=== PATIENT | female | born 1940 | race Caucasian/White ===

== ENCOUNTER 2017-09-04 22:48 | Inpatient (IN) ==
--- NOTE | 2017-09-04 23:10 | Emergency Department Note ---
Disposition Clinical Impression: Near syncope, Paroxysmal atrial fibrillation with RVR Vomiting Qualifiers: Vomiting type: unspecified Vomiting Intractability: non-intractable Nausea presence: with nausea Qualified Code(s): R11.2 - Nausea with vomiting, unspecified Diarrhea Qualifiers: Diarrhea type: unspecified type Qualified Code(s): R19.7 - Diarrhea, unspecified Disposition: Admitted As Inpatient Condition: Good Referrals: Renato No DO [Primary Care Provider] - Forms: ED Satisfaction Letter Time of Disposition: 00:18 Nausea/Vomiting/Diarrhea HPI - General Chief complaint: ED Nausea/Vomiting/Diarrhea Stated complaint: dizziness,nausea, high bp Time Seen by Provider: 09/04/17 22:54 Source: patient, family Mode of arrival: ambulatory Limitations: no limitations Nursing Notes Reviewed: Yes Vital Signs Reviewed: Yes - History of Present Illness HPI Narrative: Patient is a 76-year-old female with past medical history of hypertension, hyperlipidemia, diabetes. She presents today due to lightheadedness, near syncope, nausea, vomiting, diarrhea. She states that when she woke up this morning, she felt lightheaded and had to hold onto the sink as she felt like she was going to pass out and fall. She denies any actual loss of consciousness. She states that that today, she has had several of these episodes, has also had 2 episodes of vomiting, also loose stools. Both of these are nonbloody. Denies any other numbness, tingling, weakness, chest pain , shortness of breath, fevers. Denies any dysuria, hematuria. Denies any history of lightheadedness or syncope in the past. She denies vertigo, says that her sensation is more of getting ready to pass out rather than the room spinning. - Related Data Allergies Allergy/AdvReac Type Severity Reaction Status Date / Time No Known Allergies Allergy Verified 09/04/17 22:49 All systems ED: reviewed and negative except as stated. Constitutional: Denies: fever Cardiovascular: Denies: chest pain Respiratory: Denies: dyspnea Gastrointestinal: Reports: nausea, vomiting, diarrhea. Denies: abdominal pain Genitourinary: Denies: urgency, dysuria, frequency, hematuria Musculoskeletal: Denies: back pain, neck pain Neurological: Reports: other (light headedness). Denies: weakness, numbness, paresthesias Past Medical History - Past Medical History Attestation: Yes The following information was validated with the patient. Source: patient Medical history: Reports: diabetes, hyperlipidemia, hypertension Psychiatric history: Reports: depression - Social History Smoking Status: Current every day smoker Smokeless Tobacco Status: No Alcohol use: Reports: none Drug use: Reports: none Physical Exam - General Limitations: no limitations General appearance: alert, in no apparent distress - Head Head exam: atraumatic, normocephalic, normal inspection - Eye Eye exam: Present: normal appearance, PERRL, EOMI - ENT ENT exam: normal exam, normal oropharynx, mucous membranes moist - Neck Neck exam: Present: normal inspection, full ROM, trachea midline - Chest Chest inspection: Present: normal inspection, symmetric chest wall rise - Respiratory Respiratory exam: Present: normal lung sounds bilaterally - Cardiovascular Cardiovascular exam: Present: normal rhythm, bradycardia, normal heart sounds, other (brief 20 second run of a fib RVR) - Abdominal Exam Abdominal exam: Present: soft, Non-Tender. Absent: tenderness, distention, guarding, rebound, rigidity - Extremities Exam Extremities exam: Present: normal inspection, full ROM. Absent: tenderness, pedal edema - Neurological Exam Neurological exam: Present: alert, oriented X3, CN II-XII intact. Absent: motor sensory deficit - Psychiatric Psychiatric exam: Present: normal affect, normal mood - Skin Skin exam: Present: warm, dry, intact, normal color Course Course Narrative: Patient hypertensive on presentation, otherwise, the rest of the vitals were within normal limits on room air. Physical exam fairly benign. She was bradycardic during the exam, regular rhythm. Lungs clear to auscultation, abdomen soft and benign. No lower extremity edema. No focal neurologic deficits. No facial droop or slurring. During the exam, patient did have around 20 second run of A. fib RVR. She was not symptomatic during this run. She has no prior history of A. fib. Due to near-syncope, we will obtain a CT of the head, EKG, chest x-ray, basic blood work, TSH, d-dimer. Patient will need to be admitted for further cardiac monitoring after workup is back due to witnessed arrhythmia. 00:15 TSH within normal limits, troponin negative, d-dimer negative, CT head and chest x-ray negative for any acute processes. EKG shows no acute ST changes , sinus bradycardia. Patient blood pressure remains high at 190 systolic. I discussed admission with the hospitalist. We discussed possibly giving the patient antihypertensive. He would like to see the patient before anything is administered. Patient is currently asymptomatic. Vital Signs Temperature 97.6 F 09/04/17 22:49 Pulse Rate 57 09/04/17 22:49 Respiratory Rate 20 09/04/17 22:49 Blood Pressure 203/84 09/04/17 22:49 O2 Sat by Pulse Oximetry 94 09/04/17 22:49 Temperature 97.6 F 09/04/17 22:49 Pulse Rate 54 09/04/17 23:30 Respiratory Rate 18 09/04/17 23:30 Blood Pressure 196/99 09/04/17 23:30 O2 Sat by Pulse Oximetry 94 09/04/17 22:49 Oxygen Delivery Oxygen Delivery Room Air Nausea/Vomiting/Diarrhea - MDM Narrative Medical decision making narrative: TSH within normal limits, troponin negative, d-dimer negative, CT head and chest x-ray negative for any acute processes. EKG shows no acute ST changes, sinus bradycardia. Patient blood pressure remains high at 190 systolic. I discussed admission with the hospitalist. We discussed possibly giving the patient antihypertensive. He would like to see the patient before anything is administered. Patient is currently asymptomatic. - Medical Records Medical records reviewed: Yes I reviewed the patient's medical records. - Lab Data Lab results reviewed: Yes I reviewed the patient's lab results. Result diagrams: 09/04/17 23:05 09/04/17 23:05 Lab Results 09/04/17 09/04/17 09/04/17 Range/Units 23:05 23:05 23:05 WBC 11.3 H (4.3-11.1) K/mcL RBC 4.92 (3.82-4.97) M/mcL Hgb 14.9 (11.5-15.4) g/dL Hct 45.3 H (35.3-44.9) % MCV 92.1 (83.0-100.0) fL MCH 30.3 (28.0-33.3) pg MCHC 32.9 (31.6-35.5) g/dL RDW 12.6 (11.5-14.5) % Plt Count 293 (140-400) K/mcL MPV 8.4 L (9.4-12.4) fL Immature Gran % 0.3 (0-4) % Seg Neutrophils % 65.6 % Lymphocytes % 25.3 % Monocytes % 6.8 % Eosinophils % 1.3 % Basophils % 0.7 % Neutrophils # 7.4 (1.6-8.9) K/mcL Lymphocytes # 2.9 (0.6-4.6) K/mcL Monocytes # 0.8 (0.0-1.3) K/mcL Eosinophils # 0.2 (0.0-0.6) K/mcL Basophils # 0.1 (0.0-0.2) K/mcL PT 11.2 (9.4-12.1) Seconds INR 1.0 APTT 36.1 H (26.0-36.0) Seconds D-Dimer 439 (0-500) ng/mLFEU Sodium 132 L (136-145) mEq/L Potassium 4.0 (3.5-4.5) mEq/L Chloride 94 L (98-109) mEq/L Carbon Dioxide 29 (19-29) mEq/L BUN 9 (7-20) mg/dL Creatinine 0.67 (0.57-1.11) mg/dL Est GFR ( Amer) > 60 (> 60) Est GFR (Non-Af Amer) > 60 (> 60) BUN/Creatinine Ratio 13 (6-26) Glucose 119 H (70-99) mg/dL Calculated Osmolality 274 L (280-300) Calcium 9.6 (8.6-10.8) mg/dL Troponin I (0-0.03) ng/mL TSH 2.907 (0.350-4.840) mcIU/mL 09/04/17 Range/Units 23:05 WBC (4.3-11.1) K/mcL RBC (3.82-4.97) M/mcL Hgb (11.5-15.4) g/dL Hct (35.3-44.9) % MCV (83.0-100.0) fL MCH (28.0-33.3) pg MCHC (31.6-35.5) g/dL RDW (11.5-14.5) % Plt Count (140-400) K/mcL MPV (9.4-12.4) fL Immature Gran % (0-4) % Seg Neutrophils % % Lymphocytes % % Monocytes % % Eosinophils % % Basophils % % Neutrophils # (1.6-8.9) K/mcL Lymphocytes # (0.6-4.6) K/mcL Monocytes # (0.0-1.3) K/mcL Eosinophils # (0.0-0.6) K/mcL Basophils # (0.0-0.2) K/mcL PT (9.4-12.1) Seconds INR APTT (26.0-36.0) Seconds D-Dimer (0-500) ng/mLFEU Sodium (136-145) mEq/L Potassium (3.5-4.5) mEq/L Chloride (98-109) mEq/L Carbon Dioxide (19-29) mEq/L BUN (7-20) mg/dL Creatinine (0.57-1.11) mg/dL Est GFR ( Amer) (> 60) Est GFR (Non-Af Amer) (> 60) BUN/Creatinine Ratio (6-26) Glucose (70-99) mg/dL Calculated Osmolality (280-300) Calcium (8.6-10.8) mg/dL Troponin I 0.01 (0-0.03) ng/mL TSH (0.350-4.840) mcIU/mL - Radiology Data Radiology results reviewed: Yes I reviewed the patient's radiology results. Chest X-Ray 09/04/17 23:08 IMPRESSION: 1. No acute cardiopulmonary disease. D/ / Leonel Nichols MD / Leonel Nichols MD Interpreting Provider: Leonel Nichols MD Head CT 09/04/17 23:09 IMPRESSION: 1. No acute intracranial abnormality. 2. Moderate chronic white matter microvascular ischemic changes. D/ / Dane Natarajan MD / Dane Natarajan MD Interpreting Provider: Dane Natarajan MD - EKG Data EKG attestation: Yes I reviewed and interpreted this EKG. EKG results narrative: 09/04/2017 at 23:00. Sinus bradycardia with occasional supraventricular premature beats, rate 54, CT 173, QRS 110, QTc 417, mild left axis deviation, no acute ST elevation or depression. No sings of WPW or Brugada S.B.AJordan. - Darrius.Haider.Keon. Situation: Demographics, MOA Background: Presenting Complaint, Relevant PMH, Meds, & Allergies Assessment: Vital Signs, Course and respsone to treatment, Exam Concerns, Patient/Family Expectation, Pertinant Lab Results Recommendation: Barrier(s) to disposition, Recommendation based on pending studies, treatments, or consults S.B.A.Joel Report Given to: Dr. Jose Peters Repor Time: 00:18
[2017-09-04 23:15] LABS: Basophils # 0.1 K/mcL (0.0-0.2); Basophils % 0.7 %; Eosinophils # 0.2 K/mcL (0.0-0.6); Eosinophils % 1.3 %; Hematocrit 45.3 % (35.3-44.9); Hemoglobin 14.9 g/dL (11.5-15.4); Immature Granulocytes % 0.3 % (0-4); Lymphocytes # 2.9 K/mcL (0.6-4.6); Lymphocytes % 25.3 %; Mean Corpuscular HGB Conc 32.9 g/dL (31.6-35.5); Mean Corpuscular Hemoglobin 30.3 pg (28.0-33.3); Mean Corpuscular Volume 92.1 fL (83.0-100.0); Mean Platelet Volume 8.4 fL (9.4-12.4); Monocytes # 0.8 K/mcL (0.0-1.3); Monocytes % 6.8 %; Neutrophils # 7.4 K/mcL (1.6-8.9); Platelet Count 293 K/mcL (140-400); Red Blood Count 4.92 M/mcL (3.82-4.97); Red Cell Distribution Width 12.6 % (11.5-14.5); Segmented Neutrophils % 65.6 %
[2017-09-04 23:22] LABS: Prothrombin Time 11.2 Seconds (9.4-12.1)
[2017-09-04 23:25] LABS: Activated Partial Thrombo Time 36.1 Seconds (26.0-36.0)
[2017-09-04 23:27] LABS: BUN/Creatinine Ratio 13 (6-26); Blood Urea Nitrogen 9 mg/dL (7-20); Calcium 9.6 mg/dL (8.6-10.8); Carbon Dioxide 29 mEq/L (19-29); Chloride 94 mEq/L (98-109); Glucose 119 mg/dL (70-99); Osmolality,Calculated 274 (280-300); Sodium 132 mEq/L (136-145); eGFR For African Americans > 60 (> 60); eGFR For Non-African Americans > 60 (> 60)
--- NOTE | 2017-09-04 23:44 | Emergency Department Note ---
START Narrative - START START: I examined this patient and my medical decision-making was reviewed with the emergency medicine resident. I agree with the documented findings, disposition and treatment plan as described except to the extent set forth below. Patient seen with emergency medicine resident Dr. JED YA, Please see a copy of his note for details of the H&P, ED evaluation, management and disposition. I have independently evaluated the patient and confirmed appropriate portions of the history and physical exam. Briefly: 76-year-old female presents with several days of dizziness and near syncope. Patient had a bout of A. fib with RVR during the evaluation. The EKG did not reveal back. Physical examination was otherwise benign. No known prior history of atrial fibrillation. Patient is not on blood thinners at this time. Patient will undergo CT laboratory analysis and admission. Disposition pending.
[2017-09-04 23:49] LABS: Thyroid Stimulating Hormone 2.907 mcIU/mL (0.350-4.840)
[2017-09-05] MEDS ORDERED: Nitroglycerin 25 MG/250 ML INFUS..BTL IVC SCH (01:30)
--- NOTE | 2017-09-05 01:30 | Internal Med History&Physical ---
Date of Encounter: 09/05/17 Time of Encounter: 01:27 Assessment and Plan (1) Hypertensive urgency Current visit: Yes Status: Acute Patient has been experiencing intermittent dizziness nausea vomiting since the morning. Neurological exam is intact during my interview including cerebellar signs. Symptoms may be related to severe hypertension versus placebo circulation TIA. Onset of symptoms approximately close to 24 hours now. Systolic blood pressure running between 200 and 210 and diastolic blood pressure between 100-110. I will start the patient on mitral drip to keep target blood pressure of approximately 180/100 and not lower. I will get MRI of the brain to look for specific circulation stroke and MRA of the head and neck echocardiogram and carotid Doppler. Continue NIH stroke scale every 4 hours (2) Paroxysmal atrial fibrillation with RVR Current visit: Yes Status: Acute This has been witnessed by emergency room physician not have any strips for this will keep patient on telemetry monitoring. Keep patient on aspirin. No prior history of atrial fibrillation. Check echocardiogram. (3) Diabetes Current visit: Yes Status: Acute Type II diabetes mellitus, sliding scale insulin Qualifiers: Qualified Code(s): E11.9 - Type 2 diabetes mellitus without complications Internal Medicine - H&P: HPI Chief complaint: dizziness History of present illness: Ms. Martínez is a 76 year old female with history of hypertension, diabetes mellitus, dyslipidemia smokes 2 packs of cigarettes daily presents to the emergency room today with a man complained of dizziness. Since the morning patient has been having intermittent episodes of dizziness nausea vomiting and gait unsteadiness. While the patient is dizzy she has to hold onto young to prevent falling. She denies any focal weakness, tingling or numbness in any extremity, facial symmetry or speech sluriness. She denies any chest pain. No prior history of TIA or stroke. While in the emergency room emergency room physician noticed that she had short runs of atrial fibrillation. Patient denies any headache. no confusion. Past Med Surg Social Fam HX - Past Medical History Medical history: diabetes, hyperlipidemia, hypertension Psychiatric history: depression - Social History Smoking Status: Current every day smoker Smokeless Tobacco Status: No Alcohol use: none Drug use: none Internal Medicine - H&P: Meds 3 Allergy/AdvReac Type Severity Reaction Status Date / Time No Known Allergies Allergy Verified 09/04/17 22:49 All Systems PM: A 10-system review of systems was performed and is negative for pertinent findings except as documented above in the HPI. Review of systems: 10 point review of systems is negative except for HPI - Constitutional Vitals: Temp Pulse Resp BP Pulse Ox 97.6 F 58 18 216/97 94 09/04/17 22:49 09/05/17 00:26 09/05/17 01:06 09/05/17 01:06 09/05/17 00:26 Exam: Gen.: patient is alert oriented times 3 not in distress cardiac: Normal S1, S2, no additional sounds or murmurs chest: Clear to auscultation Abdomen: Soft, nontender, non distended lower extremity Lax calf muscles no swelling Neuro: no focal deficits, normal cerebeller exam signs Internal Med - H&P Results - Labs CBC & Chem 7: 09/04/17 23:05 09/04/17 23:05
[2017-09-05] MEDS ORDERED: Ondansetron 4 MG/2 ML VIAL IVP PRN (01:39)
[2017-09-05] MEDS ORDERED: 0.9 % Sodium Chloride 1,000 ML ONE (01:46)
[2017-09-05] MEDS: Insulin LISPRO 300 UNITS/3 ML VIAL SQ SCH ×3 (07:35→17:10)
[2017-09-05] MEDS: Nicotine 21 MG PATCH.TD24 TD SCH (07:45)
[2017-09-05] MEDS: Aspirin 81 MG TAB.CHEW PO SCH (07:45)
[2017-09-05] MEDS: amLODIPine 5 MG TABLET PO SCH (09:50)
--- NOTE | 2017-09-05 09:54 | Event Note ---
Date of Encounter: 09/05/17 Time of Encounter: 09:51 76 F with hx of otbacco abuse, 2PPD for several years admitted to observation for HTN Urgency and neurologic symptoms Per ER documentation, she had an episode of Afib with no strips or EKG to confirm this She is seen and evaluated at bedside, no new complains Awaiting ECHO/MR brain She denies new complains Physical exam is unremarkable, she has no neurologic deficits. HS are regular with normal rate Follow all work up pending, start po Norvasc, with plan to reconcile home meds when reconciled. Continue ASA. Keep on tele.
--- NOTE | 2017-09-05 14:03 | Electrocardiograph Report ---
[address] [address] Test Date: 2017-09-04 Pat Name: Camelia Martínez Department: 103 Room: 2N02 Gender: F Utility Engineer: ASHLEY : 1940 Requested By: Kobe Willams Order Number: [id number] Reading MD: Julianna Cardoso Measurements Intervals [place] Rate: 54 P: 89 AK: 173 QRS: -62 QRSD: 110 T: 36 QT: 432 QTc: 417 Interpretive Statements SINUS BRADYCARDIA WITH OCCASIONAL SUPRAVENTRICULAR PREMATURE COMPLEXES LEFT AXIS DEVIATION INCOMPLETE RIGHT BUNDLE BRANCH BLOCK Electronically Signed On 09-05-2017 14:01:21 EDT by Julianna Cardoso
[2017-09-05] MEDS: Lisinopril 20 MG TABLET PO SCH (16:08)
[2017-09-06 04:34] LABS: Basophils # 0.1 K/mcL (0.0-0.2); Basophils % 0.5 %; Eosinophils # 0.1 K/mcL (0.0-0.6); Eosinophils % 1.2 %; Hematocrit 38.5 % (35.3-44.9); Immature Granulocytes % 0.3 % (0-4); Lymphocytes # 2.7 K/mcL (0.6-4.6); Lymphocytes % 23.2 %; Mean Corpuscular HGB Conc 33.8 g/dL (31.6-35.5); Mean Corpuscular Hemoglobin 30.8 pg (28.0-33.3); Mean Corpuscular Volume 91.2 fL (83.0-100.0); Mean Platelet Volume 8.6 fL (9.4-12.4); Monocytes # 1.1 K/mcL (0.0-1.3); Monocytes % 9.5 %; Neutrophils # 7.6 K/mcL (1.6-8.9); Platelet Count 268 K/mcL (140-400); Red Blood Count 4.22 M/mcL (3.82-4.97); Red Cell Distribution Width 12.7 % (11.5-14.5); Segmented Neutrophils % 65.3 %
[2017-09-06 04:41] LABS: BUN/Creatinine Ratio 13 (6-26); Blood Urea Nitrogen 8 mg/dL (7-20); Calcium 9.3 mg/dL (8.6-10.8); Carbon Dioxide 26 mEq/L (19-29); Chloride 97 mEq/L (98-109); Glucose 110 mg/dL (70-99); Osmolality,Calculated 277 (280-300); Potassium 3.8 mEq/L (3.5-4.5); Sodium 134 mEq/L (136-145); eGFR For African Americans > 60 (> 60); eGFR For Non-African Americans > 60 (> 60)
[2017-09-06] MEDS: Lisinopril 20 MG TABLET PO SCH (08:10)
[2017-09-06] MEDS: Aspirin 81 MG TAB.CHEW PO SCH (08:10)
[2017-09-06] MEDS: amLODIPine 5 MG TABLET PO SCH (08:10)
[2017-09-06] MEDS: Nicotine 21 MG PATCH.TD24 TD SCH (08:12)
[2017-09-06] MEDS: Insulin LISPRO 300 UNITS/3 ML VIAL SQ SCH ×3 (08:12→17:11)
[2017-09-06] MEDS ORDERED: Budesonide/Formoterol 160/4.5 MDI IH SCH (10:45)
[2017-09-06] MEDS: Ipratropium/Albuterol Neb 3 ML IH SCH ×2 (11:48→17:06)
[2017-09-06 16:23] VITALS: BP 138/86
--- NOTE | 2017-09-06 17:00 | Internal Med Progress Note ---
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 Qualifiers: Transient cerebral ischemia type: unspecified Qualified Code(s): G45.9 - Transient cerebral ischemic attack, unspecified (2) Hypertensive urgency Current Visit: Yes Status: Acute Assessment and plan: Essential hypertension, controlled, monitor Continue Norvasc, Zestril, Lopressor Hypertensive urgency is resolved (3) Paroxysmal atrial fibrillation with RVR Current Visit: Yes Status: Acute Assessment and plan: Paroxysmal atrial fibrillation with RVR, now resolved, continue cardiac telemetry (4) Diabetes Current Visit: Yes Status: Acute Assessment and plan: Type 2 diabetes mellitus, [id number], hyperglycemia Continue sliding scale and glucose checks Qualifiers: Diabetes mellitus type: type 2 Diabetes mellitus complication status: without complication Diabetes mellitus [facility] insulin use: without termite treater helper use Qualified Code(s): E11.9 - Type 2 diabetes mellitus without complications (5) Tobacco abuse Current Visit: Yes Status: Chronic Assessment and plan: Counseled about cessation, nicotine patch (6) DVT prophylaxis Current Visit: Yes Status: Acute Assessment and plan: Continue heparin subcutaneous - Time Spent With Patient 25 - 35 minutes - Subjective Interval history: Examined this morning. Patient is awake and alert. Not in any distress. Denies chest pain or shortness of breath. Hemodynamically stable. No fever. No focal neurological deficits. Patient states he is better almost gone today. MRA head and neck reveal small saccular aneurysms. Neurology consult pending. No other acute events or complaints. - Constitutional Vitals: Temp Pulse Resp BP Pulse Ox 98.4 F 58 16 138/86 94 09/06/17 16:17 09/06/17 16:17 09/06/17 16:17 09/06/17 16:17 09/06/17 16:17 General appearance: Present: cooperative, A&O X 3, pleasant, no acute distress, answers questions appropriately - Head Head exam: Present: atraumatic - Eye Eye exam: Present: EOMI - ENT ENT exam: Present: mucous membranes moist - Respiratory Respiratory exam: Present: CTAB. Absent: chest wall tenderness, rales, rhonchi , wheezes, tachypnea - Cardiovascular Cardiovascular exam: Present: RRR, +S1, +S2 - GI/Abdominal GI/Abdominal exam: Present: soft. Absent: distended, firm, guarding, tenderness - Extremities Exam Extremities exam: Present: radial pulses palpable and symmetrical. Absent: calf tenderness, cyanotic, pedal edema - Neurological Exam Neurological exam: Present: alert, oriented X3, no focal deficits. Absent: facial droop, speech deficit Internal Medicine: Result - Labs CBC & Chem 7: 09/06/17 03:33 09/06/17 03:33 Labs: Short CBC 09/06/17 Range/Units 03:33 WBC 11.6 H (4.3-11.1) K/mcL Hgb 13.0 D (11.5-15.4) g/dL Hct 38.5 (35.3-44.9) % Plt Count 268 (140-400) K/mcL Neutrophils # 7.6 (1.6-8.9) K/mcL BMP 09/06/17 03:33 Sodium 134 L Potassium 3.8 Chloride 97 L Carbon Dioxide 26 BUN 8 Creatinine 0.62 Glucose 110 H Calcium 9.3 - ABG Interpretation ABG results: PT/INR, D-dimer PT 11.2 Seconds (9.4-12.1) 09/04/17 23:05 D-Dimer 439 ng/mLFEU (0-500) 09/04/17 23:05 Consult Discharge Plan - Plan Referrals: Renato No DO [Primary Care Provider] - 09/12/17 1:30 pm (PLEASE FAX DISCHARGE SUMMARY TO [phone])
[2017-09-06] MEDS ORDERED: *HR* Heparin 5,000 UNIT/ML VIAL SQ SCH (18:00)
--- NOTE | 2017-09-06 18:02 | Neurology - Consult Note ---
Date of Encounter: 09/06/17 Time of Encounter: 17:56 Assessment and Plan (1) Near syncope Current Visit: Yes Status: Acute Likely related to hyertensive urgency with BP at 210/100 range. Symptoms essentially resolved after BP better controlled. MRA of three smal cerebral aneurysm likely incidental finding and these are small and involve supraclinoid portion and cavernous portion of ICA. Currently the patient is asymptomatic and her BP well controlled. No acute intervention appears necessary. Will follow up the patient in neurology in few weeks to discuss further treatment options, including clinical monitoring, or referal to interventional radiology or neurosurgery. Due to the multiple nature of the finding, will most likely recommend conservative measures. Tighter control of BP desired. History of Present Illness Chief complaint: cerebral aneurysm HPI: Ms. Martínez is a 76 year old female with PMH significant for HTN, who developed lightheadedness, nausea lasting all day last Tuesday. Patient states that on Tuesday in the morning she developed lightheadedness, a feeling that she is dizzy but would not pass out. She was also sick twice during the day. Apparently the symptoms lasted all day long and then she called her children asking whether she needs to go to ER. after checking her blood pressure which was 210/100 then she was brought to the hospital. MRI of brain showed no acute intracranial abnormality. MRA of brain however, showed Question of a 2.9 mm saccular aneurysm in the cavernous segment of the right internal carotid artery with apex pointing laterally. Question of a 2.5 mm saccular aneurysm in the supraclinoid segment of the right internal carotid artery with apex directed inferiorly. Question of a 2.5 mm saccular aneurysm in the supraclinoid segment of the left internal carotid artery with apex directed anterolaterally. Moderate stenosis in the cavernous segment of the right internal carotid artery, likely secondary to atherosclerotic disease. Approximately 50% focal stenosis at origin of the left subclavian artery. The remainder of the MRA of the neck is within normal limits. Currently the patient denies any symptoms She has no headaches. Symptoms improved after the blood pressure better controlled. She normally does not have headaches. Past Med Surg Social Fam HX - Past Medical History Medical history: diabetes, hyperlipidemia, hypertension Psychiatric history: depression - Social History Smoking Status: Current every day smoker Packs per day: 2 Smokeless Tobacco Status: No Alcohol use: none Drug use: none - Family History Father Hx Family Cardiac Disorders: Yes (SD) Mother Hx Family Endocrine Disorder: Yes (diabetes) Medications and Allergies Atorvastatin [Lipitor] 40 mg PO HS 09/05/17 [History] Citalopram Hydrobromide [Citalopram HBr] 10 mg PO DAILY 09/05/17 [History] Lisinopril [Zestril] 20 mg PO DAILY 09/05/17 [History] Metoprolol [Lopressor] 50 mg PO BID 09/05/17 [History] metFORMIN [Glucophage] 250 mg PO BID 09/05/17 [History] 3 Allergy/AdvReac Type Severity Reaction Status Date / Time No Known Allergies Allergy Verified 09/04/17 22:49 All Systems: A 10-system review of systems was performed and is negative for pertinent findings except as documented above in the HPI. Physical Examination - Vital Signs Vital Signs: Initial Vital Signs Temp Pulse Resp BP Pulse Ox 97.6 F 57 20 203/84 94 09/04/17 22:49 09/04/17 22:49 09/04/17 22:49 09/04/17 22:49 09/04/17 22:49 - Constitutional General appearance: comfortable - Neurologic Detailed motor examination: full strength in all major muscle groups Motor examination - right side: 5/5: deltoids, biceps, triceps, wrist flexion, wrist extension, sustainable agriculture specialist, hip flexors, tibialis Anterior, quadriceps, toe extension (EHL), plantarflexion Motor examination - left side: 5/5: deltoids, biceps, triceps, wrist flexion, wrist extension, hip flexors, sustainable agriculture specialist, quadriceps, tibialis Anterior, toe extension (EHL), plantarflexion Mental Status Examination: awake, alert, oriented to person, oriented to place, oriented to time, follows commands appropriately, answers questions appropriately, no agnosia, no aphasia, no aproxia Cranial nerve examination: PERRL, EOMI, visual guillen intact, corneal reflexes brisk symmetrically, sensory to face intact, mastication intact, no facial asymmetry is present, no dysarthria, hearing is intact symmetrically, soft palate elevates bilaterally upon phonation, gag reflex intact, flexes SCM and trapezius muscles symmetrically with full power, tongue protrudes midline, no atrophy or facial fasiculations present Cerebellar examination: no dysmetria, performs finger to nose and heel to bronson symmetrically without ataxia, no gait ataxia, no truncal ataxia, no difficulty with rapid alternating movements Results - Laboratory Findings CBC and BMP: 09/06/17 03:33 09/06/17 03:33 Abnormal lab findings: Abnormal lab results WBC 11.6 K/mcL (4.3-11.1) H 09/06/17 03:33 MPV 8.6 fL (9.4-12.4) L 09/06/17 03:33 APTT 36.1 Seconds (26.0-36.0) H 09/04/17 23:05 Sodium 134 mEq/L (136-145) L 09/06/17 03:33 Chloride 97 mEq/L (98-109) L 09/06/17 03:33 Glucose 110 mg/dL (70-99) H 09/06/17 03:33 POC Glucose 108 (58-89) H 09/06/17 11:05 Calculated Osmolality 277 (280-300) L 09/06/17 03:33 Creatine Kinase 28 Units/L (29-168) L 09/05/17 12:06 Consult Discharge Plan - Plan Referrals: Renato No DO [Primary Care Provider] - 09/12/17 1:30 pm (PLEASE FAX DISCHARGE SUMMARY TO [phone])
--- NOTE | 2017-09-06 18:20 | Discharge Summary ---
Date of Encounter: 09/06/17 Time of Encounter: 18:15 - Discharge Diagnosis (1) TIA (transient ischemic attack) Priority: Primary Status: Acute Comments: Transient ischemic attack - with symptoms of dizziness and unsteady gait - asymptomatic at present Risk factors include smoking, diabetes and hyperlipidemia and hypertension Continue aspirin, Lipitor, needs good blood pressure control CT head - no acute intracranial abnormality Carotid Doppler - nonstenotic plaque Echocardiogram - LVEF 65, mild diastolic dysfunction Chest x-ray - no acute process MRI brain - no acute infarct, chronic lacunar infarcts in the left thalamus and posterior limb internal capsule MRA head and neck - 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 Qualifiers: Transient cerebral ischemia type: unspecified Qualified Code(s): G45.9 - Transient cerebral ischemic attack, unspecified (2) Hypertensive urgency Priority: Primary Status: Acute Comments: Essential hypertension, controlled, monitor Continue Norvasc, Zestril, Lopressor Hypertensive urgency is resolved (3) Paroxysmal atrial fibrillation with RVR Priority: Primary Status: Acute Comments: Paroxysmal atrial fibrillation with RVR, now resolved (4) Diabetes Priority: Secondary Status: Chronic Comments: Type 2 diabetes mellitus, [id number], hyperglycemia Continue home meds Qualifiers: Diabetes mellitus type: type 2 Diabetes mellitus complication status: without complication Diabetes mellitus lobsterman insulin use: without skilled nursing use Qualified Code(s): E11.9 - Type 2 diabetes mellitus without complications (5) Tobacco abuse Priority: Secondary Status: Chronic Comments: Counseled about cessation, nicotine patch - Discharge Medications Prescriptions: Ipratropium/Albuterol Neb [Duoneb] 3 ml IH [id number] #30 inhsol amLODIPine [Norvasc] 10 mg PO DAILY #30 tablet Aspirin 81 mg PO DAILY #30 tab.chew Budesonide/Formoterol 160/4.5 [Symbicort 160/4.5] 1 puff IH BIDR #1 inhaler hydroCHLOROthiazide [Hydrochlorothiazide] 12.5 mg PO DAILY #30 tablet Nicotine Patch [Nicoderm] 21 mg TD DAILY #30 patch.td24 Home Medications: Atorvastatin [Lipitor] 40 mg PO HS 09/05/17 [History] Citalopram Hydrobromide [Citalopram HBr] 10 mg PO DAILY 09/05/17 [History] Lisinopril [Zestril] 20 mg PO DAILY 09/05/17 [History] Metoprolol [Lopressor] 50 mg PO BID 09/05/17 [History] metFORMIN [Glucophage] 250 mg PO BID 09/05/17 [History] Aspirin 81 mg PO DAILY #30 tab.chew 09/06/17 [Rx] Budesonide/Formoterol 160/4.5 [Symbicort 160/4.5] 1 puff IH BIDR #1 inhaler [Rx] Ipratropium/Albuterol Neb [Duoneb] 3 ml IH [id number] #30 inhsol 09/06/17 [Rx] Nicotine Patch [Nicoderm] 21 mg TD DAILY #30 patch.td24 09/06/17 [Rx] amLODIPine [Norvasc] 10 mg PO DAILY #30 tablet 09/06/17 [Rx] hydroCHLOROthiazide [Hydrochlorothiazide] 12.5 mg PO DAILY #30 tablet 09/06/17 [ Rx] Allergies/Adverse Reactions: 3 Allergy/AdvReac Type Severity Reaction Status Date / Time No Known Allergies Allergy Verified 09/04/17 22:49 Date of admission: 09/05/17 03:58 Primary care physician: Renato No Consults: 09/06/17 08:07 Consult to Neurology [CONS] Routine Consulting Provider: [facility] Reason for Consult: 2.5mm saccular aneurysm Call Completed: No Anticipated date of discharge: 09/06/17 - Patient Status Disposition: Home, Self-Care Condition: Good Functional capacity at discharge: independent ambulation Overall status at discharge: patient is progressing back to baseline - Discharge Instructions Instructions: Atrial Fibrillation (DC), Diabetes Mellitus Type 2 in Adults (DC) , Chronic Hypertension (DC) Follow Up With: Renato No DO [Primary Care Provider] - 09/12/17 1:30 pm (PLEASE FAX DISCHARGE SUMMARY TO [phone]) Edu Brewer MD [Partnered Physician] - (SENT REQUEST 09/06/17 @8522) - Diet and Activity Activity: increase activity as tolerated, resume usual activities as tolerated Diet: advance to your usual diet, diabetic diet Hospital course: Ms. Martínez is a 76 year old female with past medical history of diabetes, hyperlipidemia, hypertension and depression. Patient presented to the ED with complaints of dizziness. She been having intermittent episodes of dizziness and nausea and vomiting with unsteady gait. Patient is admitted for hypertensive urgency. Patient was also admitted for a CVA workup. She was started on now aspirin and statin. Patient is a smoker. Her risk factors for CVA including smoking and hypertension and hyperlipidemia. Patient also has diabetes and is on sliding scale insulin for diabetes. She has been counseled on smoking cessation. Patient has been advised continue aspirin and statin. She is also advised that good blood pressure control to prevent TIAs or CVAs. Patient has been advised continue Norvasc and Lopressor and Zestril. Advised to check blood pressure daily. CT scan of the head is negative. MRI of the brain shows no acute infarct or chronic lacunar infarcts. Carotid Doppler does not show any stenotic plaque. Echocardiogram shows LVEF 65% with mild LV diastolic dysfunction. MRI of the head and neck: 9 mm saccular aneurysm in the cavernous segment of the right ICA and a 2.5 mm aneurysm of the supraclinoid segment of the right ICA. Dr. Brewer of neurology has evaluated the patient. Advised good blood pressure control. No acute intervention necessary at this time. Advised outpatient neurology follow-up. Patient and family have been explained about the patient's condition and plan of care in detail. They understood and agreed. No unanswered questions. Advised return if symptoms worsen. Advised follow-up with primary care physician and neurology as outpatient. Time spent discussing smoking cessation with patient: 3 to 10 minutes - Time Spent with Patient Total time spent providing and/or coordinating discharge services: Greater than 30 minutes - Constitutional Vitals: Temp Pulse Resp BP Pulse Ox 98.4 F 63 16 138/86 95 09/06/17 16:17 09/06/17 17:37 09/06/17 17:07 09/06/17 16:17 09/06/17 17:07 General appearance: Present: cooperative, A&O X 3, pleasant, no acute distress, answers questions appropriately - Head Head exam: Present: atraumatic - Eye Eye exam: Present: EOMI - ENT ENT exam: Present: mucous membranes moist - Respiratory Respiratory exam: Present: CTAB. Absent: rales, rhonchi, wheezes, tachypnea - Cardiovascular Cardiovascular exam: Present: RRR, +S1, +S2 - GI/Abdominal GI/Abdominal exam: Present: soft. Absent: distended, firm, guarding, tenderness - Extremities Exam Extremities exam: Present: radial pulses palpable and symmetrical. Absent: calf tenderness, cyanotic, pedal edema - Neurological Exam Neurological exam: Present: alert, oriented X3, no focal deficits. Absent: facial droop, speech deficit
[2017-09-07 09:53] LABS: CK Total (Ck Isoenzymes) 22 U/L (20-180)
[2017-09-07 18:06] LABS: CK-MB (CK isoenzymes) 0 % (0-4); CK-MM (CK-isoenzymes) 100 % (96-100)
[2017-09-08 08:40] LABS: CK Total (Ck Isoenzymes) 25 U/L (20-180); CK-BB (CK isoenzymes) 0 % (0-0)
== END 2017-09-06 19:02 | disposition home or self-care (01) | DRG 305 ==
LOC: EMEROO 22:48 → 3ANU 22:48 → 2NNU 09-05 01:19
PROVIDERS: ADMIT Hospitalist; ATTEND Internal Medicine

== ENCOUNTER 2019-04-12 11:24 | Observation (INO) ==
[2019-04-12] MEDS ORDERED: Ipratropium/Albuterol Neb 3 ML IH ONE (11:33)
[2019-04-12] MEDS ORDERED: methylPREDNISolone 125 MG/2 ML VIAL IVP ONE (11:33)
[2019-04-12] MEDS ORDERED: Albuterol 2.5 MG/3 ML NEBULIZER IH ONE (11:33)
--- NOTE | 2019-04-12 11:34 | Emergency Department Note ---
Disposition Clinical Impression: Shortness of breath, COPD exacerbation, Pulmonary nodule Disposition: Admitted As Inpatient Condition: Fair Referrals: Renato No DO [Primary Care Provider] - Time of Disposition: 14:05 General Adult HPI - General Stated complaint: YOLIE Time Seen by Provider: 04/12/19 11:33 Source: patient Mode of arrival: ambulatory Limitations: no limitations Nursing Notes Reviewed: Yes Vital Signs Reviewed: Yes - History of Present Illness HPI Narrative: Patient is a 78-year-old female with past medical history including hypertension, coronary artery disease, diabetes mellitus type 2, tobacco use, presenting with chief complaint of shortness of breath. The patient states she woke up suddenly with shortness of breath. She feels short of breath at rest and worsens with exertion. She states she has not smoked a cigarette today because of her shortness of breath. She denies new cough, fevers or chills, chest pain, abdominal pain, lower extremity swelling. She states she has not felt like this before. She called EMS to take the patient here for further evaluation. The patient was placed on oxygen. She was 2 L at 92%. She states she felt better with oxygen on. She does not wear oxygen at home. - Related Data Home Medications Medication Instructions Recorded Confirmed Atorvastatin [Lipitor] 40 mg PO HS 09/05/17 07/17/18 Lisinopril [Zestril] 20 mg PO DAILY 09/05/17 07/17/18 Metoprolol [Lopressor] 50 mg PO BID 09/05/17 07/17/18 metFORMIN [Glucophage] 250 mg PO BID 09/05/17 07/17/18 Dipyridamole 50 mg PO TID 07/17/18 07/17/18 Ergocalciferol (VITAMIN D2) 400 unit PO 07/17/18 07/17/18 [Vitamin D] Previous Rx's Medication Instructions Recorded Aspirin 81 mg PO DAILY #30 tab.chew 09/06/17 Budesonide/Formoterol 160/4.5 1 puff IH BIDR #1 inhaler 09/06/17 [Symbicort 160/4.5] Ipratropium/Albuterol Neb [Duoneb] 3 ml IH [id number] #30 inhsol 09/06/17 amLODIPine [Norvasc] 10 mg PO DAILY #30 tablet 09/06/17 Allergies Allergy/AdvReac Type Severity Reaction Status Date / Time No Known Allergies Allergy Verified 09/04/17 22:49 All systems ED: reviewed and negative except as stated. Review of Systems: As Per HPI Constitutional: Denies: fever, chills Cardiovascular: Denies: chest pain, palpitations Respiratory: Reports: dyspnea. Denies: cough Gastrointestinal: Denies: abdominal pain, nausea, vomiting Genitourinary: Denies: dysuria Integumentary: Denies: rash Neurological: Denies: headache, weakness Past Medical History - Past Medical History Attestation: Yes The following information was validated with the patient. Source: patient Medical history: Reports: diabetes, hyperlipidemia, hypertension Psychiatric history: Reports: depression - Social History Smoking Status: Current every day smoker Smokeless Tobacco Status: No Alcohol use: Reports: none Drug use: Reports: none Physical Exam - General Limitations: no limitations General appearance: alert, in no apparent distress - Head Head exam: atraumatic, normocephalic - Eye Eye exam: Present: normal appearance, EOMI - ENT ENT exam: normal exam, normal oropharynx - Neck Neck exam: Present: normal inspection, trachea midline - Chest Chest inspection: Present: normal inspection, symmetric chest wall rise. Absent: tenderness - Respiratory Respiratory exam: Present: other (significantly diminished breath sounds bilaterally without wheezing or rhonchi) - Cardiovascular Cardiovascular exam: Present: regular rate, normal rhythm, other (bilateral radial pulses equal and palpable) - Abdominal Exam Abdominal exam: Present: soft, Non-Tender. Absent: distention - Extremities Exam Extremities exam: Present: normal capillary refill, other (bilateral lower extrmeity swelling to mid calf, mild). Absent: calf tenderness - Neurological Exam Neurological exam: Present: alert, oriented X3 - Psychiatric Psychiatric exam: Present: normal affect, normal mood - Skin Skin exam: Present: warm, dry. Absent: diaphoresis, pallor Course Vital Signs Temperature 98.1 F 04/12/19 11:33 Pulse Rate 77 04/12/19 11:33 Respiratory Rate 18 04/12/19 11:33 Blood Pressure 200/107 04/12/19 11:33 O2 Sat by Pulse Oximetry 99 04/12/19 11:33 Temperature 98.1 F 04/12/19 11:33 Pulse Rate 81 04/12/19 13:00 Respiratory Rate 18 04/12/19 13:00 Blood Pressure 160/82 04/12/19 13:00 O2 Sat by Pulse Oximetry 100 04/12/19 13:00 Oxygen Delivery Oxygen Delivery Nasal Cannula Medical Decision Making - [facility] Narrative Medical decision making narrative: Patient presenting with shortness of breath. She was on 2 L of oxygen, oxygenating at 92%. She does not wear oxygen at home. She has significantly diminished breath sounds bilaterally. EKG shows no acute ischemic changes. She is in sinus rhythm. We will give her DuoNeb treatments, Solu-Medrol, obtain ch est x-ray, CBC, BMP, troponin, BNP, d-dimer. 13:15 Patient reassessed and she still has diminished breath sounds bilaterally with mild expiratory wheezing as well. States he feels better after the DuoNeb treatments. She remains on oxygen. Chest x-ray shows a 2.6 cm right upper lobe nodule. No evidence of pneumonia. We will obtain CT chest. Patient will require admission for COPD exacerbation, dyspnea. Troponin less than 0.03, d- dimer normal. 14:45 Patient is currently in CT scan. Discussed with Dr. Villatoro, hospitalist, who accepts admission. Patient remains stable on 2L O2 per NC at 100% saturation. Will give the patient a dose of azithromycin for COPD exacerbation. - Medical Records Medical records reviewed: Yes I reviewed the patient's medical records. - Lab Data Lab results reviewed: Yes I reviewed the patient's lab results. Result diagrams: 04/12/19 11:58 04/12/19 11:58 Lab Results 04/12/19 04/12/19 04/12/19 Range/Units 11:58 11:58 11:58 WBC 15.8 H (4.3-11.1) K/mcL RBC 4.72 (3.82-4.97) M/mcL Hgb 14.6 (11.5-15.4) g/dL Hct 44.7 (35.3-44.9) % MCV 94.7 (83.0-100.0) fL MCH 30.9 (28.0-33.3) pg MCHC 32.7 (31.6-35.5) g/dL RDW 12.7 (11.5-14.5) % Plt Count 261 (140-400) K/mcL MPV 8.6 L (9.4-12.4) fL Immature Gran % 0.6 (0-4) % Seg Neutrophils % 79.1 % Lymphocytes % 10.4 % Monocytes % 8.2 % Eosinophils % 1.1 % Basophils % 0.6 % Neutrophils # 12.5 H (1.6-8.9) K/mcL Lymphocytes # 1.7 (0.6-4.6) K/mcL Monocytes # 1.3 (0.0-1.3) K/mcL Eosinophils # 0.2 (0.0-0.6) K/mcL Basophils # 0.1 (0.0-0.2) K/mcL PT 11.6 (9.4-12.1) Seconds INR 1.0 APTT 37.4 H (26.0-36.0) Seconds D-Dimer 345 (0-500) ng/mLFEU Sodium 135 L (136-145) mEq/L Potassium 4.0 (3.5-5.1) mEq/L Chloride 95 L (98-107) mEq/L Carbon Dioxide 32 H (23-29) mEq/L BUN 10 (8-23) mg/dL Creatinine 0.61 (0.60-1.20) mg/dL Est GFR ( Amer) > 60 (> 60) Est GFR (Non-Af Amer) > 60 (> 60) BUN/Creatinine Ratio 16 (6-26) Glucose 161 H (70-105) mg/dL Calculated Osmolality 283 (280-300) Lactic Acid (0.5-2.2) mmol/L Calcium 9.6 (8.6-10.3) mg/dL Total Bilirubin 0.3 (0.3-1.0) mg/dL Direct Bilirubin 0.0 (0.0-0.2) mg/dL Indirect Bilirubin 0.3 (0.0-1.2) mg/dL AST 16 (13-39) Units/L ALT 8 (7-52) Units/L Alkaline Phosphatase 81 (34-104) Units/L Troponin I < 0.03 (< 0.04) ng/mL B-Natriuretic Peptide (Less than 100) pg/mL Serum Total Protein 7.5 (6.4-8.9) g/dL Albumin 4.3 (3.5-5.7) g/dL Globulin 3.2 (2.4-3.5) g/dL Albumin/Globulin Ratio 1.3 (1.1-2.2) 04/12/19 04/12/19 Range/Units 11:58 11:58 WBC (4.3-11.1) K/mcL RBC (3.82-4.97) M/mcL Hgb (11.5-15.4) g/dL Hct (35.3-44.9) % MCV (83.0-100.0) fL MCH (28.0-33.3) pg MCHC (31.6-35.5) g/dL RDW (11.5-14.5) % Plt Count (140-400) K/mcL MPV (9.4-12.4) fL Immature Gran % (0-4) % Seg Neutrophils % % Lymphocytes % % Monocytes % % Eosinophils % % Basophils % % Neutrophils # (1.6-8.9) K/mcL Lymphocytes # (0.6-4.6) K/mcL Monocytes # (0.0-1.3) K/mcL Eosinophils # (0.0-0.6) K/mcL Basophils # (0.0-0.2) K/mcL PT (9.4-12.1) Seconds INR APTT (26.0-36.0) Seconds D-Dimer (0-500) ng/mLFEU Sodium (136-145) mEq/L Potassium (3.5-5.1) mEq/L Chloride (98-107) mEq/L Carbon Dioxide (23-29) mEq/L BUN (8-23) mg/dL Creatinine (0.60-1.20) mg/dL Est GFR ( Amer) (> 60) Est GFR (Non-Af Amer) (> 60) BUN/Creatinine Ratio (6-26) Glucose (70-105) mg/dL Calculated Osmolality (280-300) Lactic Acid 1.5 (0.5-2.2) mmol/L Calcium (8.6-10.3) mg/dL Total Bilirubin (0.3-1.0) mg/dL Direct Bilirubin (0.0-0.2) mg/dL Indirect Bilirubin (0.0-1.2) mg/dL AST (13-39) Units/L ALT (7-52) Units/L Alkaline Phosphatase (34-104) Units/L Troponin I (< 0.04) ng/mL B-Natriuretic Peptide 97 (Less than 100) pg/mL Serum Total Protein (6.4-8.9) g/dL Albumin (3.5-5.7) g/dL Globulin (2.4-3.5) g/dL Albumin/Globulin Ratio (1.1-2.2) - EKG Data EKG #1 EKG attestation: Yes I reviewed and interpreted this EKG. EKG results narrative: EKG obtained at 1135 shows sinus rhythm with heart rate 78, TN interval 181, QRS duration 111, QTC 457, atrial premature complexes, no ST elevation or depression. Compared to old EKG on 07/17/2018 which shows no new changes. Attestation Statement - Attestation Attestation: I, Emiliano Barton, examined this patient and my medical decision-making was reviewed with the [employer] DECORATING MACHINE OPERATOR/PA/Advanced Practice Nurse/Resident Physician. I agree with the documented findings, disposition and treatment plan as described except to the extent set forth below. 78-year-old female presents emergency Department with acute onset of shortness of breath. Patient states the shortness of breath work sleep. She does have mild pressure in her chest but denies radiation or associated diaphoresis. Patient O2 saturation was 92% with EMS, they did not see the lower lip. It improved with 2 L nasal cannula. Patient is a chronic smoker and is unsure if she has a history of COPD. Patient denies a previous history of cardiac disease. She denies fever, chills, nausea, vomiting, diarrhea. No recent trauma. Patient is unable to reproduce pain with palpation. Initial EKG shows a sinus rhythm with multiple PACs without evidence of STEMI or other dysrhythmia. Resident and I reviewed the EKG together. Laboratory evaluation and imaging is pending at this time. Patient will likely be admitted to the hospitalist for further care and evaluation.
[2019-04-12 12:18] LABS: Basophils # 0.1 K/mcL (0.0-0.2); Basophils % 0.6 %; Eosinophils # 0.2 K/mcL (0.0-0.6); Eosinophils % 1.1 %; Hematocrit 44.7 % (35.3-44.9); Hemoglobin 14.6 g/dL (11.5-15.4); Immature Granulocytes % 0.6 % (0-4); Lymphocytes # 1.7 K/mcL (0.6-4.6); Lymphocytes % 10.4 %; Mean Corpuscular HGB Conc 32.7 g/dL (31.6-35.5); Mean Corpuscular Hemoglobin 30.9 pg (28.0-33.3); Mean Corpuscular Volume 94.7 fL (83.0-100.0); Mean Platelet Volume 8.6 fL (9.4-12.4); Monocytes # 1.3 K/mcL (0.0-1.3); Monocytes % 8.2 %; Neutrophils # 12.5 K/mcL (1.6-8.9); Platelet Count 261 K/mcL (140-400); Red Blood Count 4.72 M/mcL (3.82-4.97); Red Cell Distribution Width 12.7 % (11.5-14.5); Segmented Neutrophils % 79.1 %
[2019-04-12 12:27] LABS: Prothrombin Time 11.6 Seconds (9.4-12.1)
[2019-04-12 12:29] LABS: Activated Partial Thrombo Time 37.4 Seconds (26.0-36.0)
[2019-04-12 12:45] LABS: Alanine Aminotransferase 8 Units/L (7-52); Albumin 4.3 g/dL (3.5-5.7); Albumin/Globulin Ratio 1.3 (1.1-2.2); Alkaline Phosphatase 81 Units/L (34-104); Aspartate Amino Transferase 16 Units/L (13-39); BUN/Creatinine Ratio 16 (6-26); Bilirubin,Indirect 0.3 mg/dL (0.0-1.2); Bilirubin,Total 0.3 mg/dL (0.3-1.0); Blood Urea Nitrogen 10 mg/dL (8-23); Calcium 9.6 mg/dL (8.6-10.3); Carbon Dioxide 32 mEq/L (23-29); Chloride 95 mEq/L (98-107); Globulin 3.2 g/dL (2.4-3.5); Glucose 161 mg/dL (70-105); Osmolality,Calculated 283 (280-300); Sodium 135 mEq/L (136-145); Total Protein 7.5 g/dL (6.4-8.9); Troponin I < 0.03 ng/mL (< 0.04); eGFR For Non-African Americans > 60 (> 60)
[2019-04-12] MEDS ORDERED: Isovue-370 500 ML BOTTLE IVP ONE (13:24)
[2019-04-12] MEDS ORDERED: Azithromycin 500 MG in D5% in Water 250 ML IVPB ONE (14:03)
--- NOTE | 2019-04-12 14:28 | Internal Med History&Physical ---
Date of Encounter: 04/12/19 Time of Encounter: 14:28 Internal Medicine - H&P: HPI Chief complaint: shortness of breath History of present illness: 78-year-old female with past medical history including hypertension, coronary artery disease, diabetes mellitus type 2, presenting with chief complaint of shortness of breath. The patient has been smoking for more than 60 years, at some point she was smoking round 2 packs a day. the patient is status that she has progressive worsening of shortness of breath especially with exertion. She denies fever chills, cough, chest pain, palpitation, orthopnea, paroxysmal nocturnal dyspnea, progressive worsening of lower extremity edema. The patient was evaluated by the ER staff and CT scan of the chest revealed Spiculated pulmonary nodule in the right upper lobe measuring 2.5 x 2.3 cm. that is suggestive of highly suspicious for primary lung malignancy. The patient was admitted for further evaluation and management Past Med Surg Social Fam HX - Past Medical History Medical history: atrial fibrillation, diabetes, hyperlipidemia, hypertension Psychiatric history: depression - Past Surgical History Additional surgical history: tubal - Social History Smoking Status: Current every day smoker Smokeless Tobacco Status: No Alcohol use: none Drug use: none - Family History Father Hx Family Cardiac Disorders: Yes ([place]) Mother Hx Family Endocrine Disorder: Yes (diabetes) Internal Medicine - H&P: Meds Atorvastatin [Lipitor] 40 mg PO HS 09/05/17 [History] Lisinopril [Zestril] 20 mg PO DAILY 09/05/17 [History] Metoprolol [Lopressor] 50 mg PO BID 09/05/17 [History] metFORMIN [Glucophage] 250 mg PO BID 09/05/17 [History] Aspirin 81 mg PO DAILY #30 tab.chew 09/06/17 [Rx] Budesonide/Formoterol 160/4.5 [Symbicort 160/4.5] 1 puff IH BIDR #1 inhaler 09/06/17 [Rx] Ipratropium/Albuterol Neb [Duoneb] 3 ml IH [id number] #30 inhsol 09/06/17 [Rx] amLODIPine [Norvasc] 10 mg PO DAILY #30 tablet 09/06/17 [Rx] Dipyridamole 50 mg PO TID 07/17/18 [History] Ergocalciferol (VITAMIN D2) [Vitamin D] 400 unit PO 07/17/18 [History] Albuterol Sulfate [Albuterol Inhaler] 2 puff IH Q6HR PRN #1 hfa.aer.ad 04/13/19 [Rx] Levofloxacin [Levaquin] 500 mg PO DAILY #4 tablet 04/13/19 [Rx] Nicotine Patch [Nicoderm] 14 mg TD DAILY #30 patch.td24 04/13/19 [Rx] predniSONE [PredniSONE] 40 mg PO DAILY #10 tablet 04/13/19 [Rx] Allergy/AdvReac Type Severity Reaction Status Date / Time No Known Allergies Allergy Verified 09/04/17 22:49 All Systems PM: A 10-system review of systems was performed and is negative for pertinent findings except as documented above in the HPI. - Constitutional Vitals: Temp Pulse Resp BP Pulse Ox 98.1 F 81 18 160/82 100 04/12/19 11:33 04/12/19 13:00 04/12/19 13:00 04/12/19 13:00 04/12/19 13:00 Exam: As below - Head Head exam: Present: atraumatic, normocephalic - Eye Eye exam: Present: PERRL, conjuntiva pink, sclera anicteric Pupils: Present: PERRL - Neck Neck exam general surgery: Present: supple, trachea midline. Absent: lymphadenopathy - Respiratory Respiratory exam: Present: CTAB, rhonchi, wheezes. Absent: accessory muscle use, rales - Cardiovascular Cardiovascular exam: Present: RRR, +S1, +S2. Absent: diastolic murmur, gallop, rubs, systolic murmur - GI/Abdominal GI/Abdominal exam: Present: normal bowel sounds, soft, no peritoneal signs. Absent: distended, tenderness - Extremities Exam Extremities exam: Present: warm, radial pulses palpable and symmetrical. Absent: calf tenderness, cyanotic, pedal edema - Neurological Exam Neurological exam: Present: CN II-XII intact, oriented X3, no focal deficits. Absent: pronater drift, facial droop, speech deficit - Skin Skin exam: Present: dry, intact Internal Med - H&P Results - Labs CBC & Chem 7: 04/13/19 05:25 04/13/19 05:25 Labs: Short CBC 04/12/19 Range/Units 11:58 WBC 15.8 H (4.3-11.1) K/mcL Hgb 14.6 (11.5-15.4) g/dL Hct 44.7 (35.3-44.9) % Plt Count 261 (140-400) K/mcL Neutrophils # 12.5 H (1.6-8.9) K/mcL BMP 04/12/19 11:58 Sodium 135 L Potassium 4.0 Chloride 95 L Carbon Dioxide 32 H BUN 10 Creatinine 0.61 Glucose 161 H Calcium 9.6 Cardiac Enzymes 04/12/19 Range/Units 11:58 Troponin I < 0.03 (< 0.04) ng/mL Liver Function 04/12/19 Range/Units 11:58 Total Bilirubin 0.3 (0.3-1.0) mg/dL Direct Bilirubin 0.0 (0.0-0.2) mg/dL AST 16 (13-39) Units/L ALT 8 (7-52) Units/L Alkaline Phosphatase 81 (34-104) Units/L Albumin 4.3 (3.5-5.7) g/dL - Impressions ITS Impressions Chest X-Ray 04/12/19 11:33 IMPRESSION: New 2.6 cm right upper lobe nodule. Further evaluation with chest CT is recommended as this may be a primary lung neoplasm. D/ / Sushant Betancourt MD / Sushant Betancourt MD Interpreting Provider: Sushant Betancourt MD - Assessment and Plan (1) COPD exacerbation Status: Suspected Assessment and plan: - SOB due COPD exacerbation PLAN: - Aerosols q 4 hr and PRN SOB - Solu-medrol 40 mg IV q 6 hr - O2 to keep SpO2 higher than 92% (SpO higher than 95% if CAD) - CBCD, BMP in AM - Tylenol 650 mg PO q 4-6 hr PRN pain/fever - Azithromycine 500 IV daily (2) Pulmonary nodule Status: Acute Assessment and plan: CT scan of the chest revealed Spiculated pulmonary nodule in the right upper lobe measuring 2.5 x 2.3 cm. that is suggestive of highly suspicious for primary lung malignancy. we will consult pulmonary for further evaluation and management (3) TIA (transient ischemic attack) Status: Chronic Assessment and plan: the patient has history of TIA, we will continue aspirin and statin Qualifiers: Transient cerebral ischemia type: unspecified Qualified Code(s): G45.9 - Transient cerebral ischemic attack, unspecified (4) Diabetes Status: Chronic Assessment and plan: we will hold metformin and start the patient and insulin sliding scale with mild coverage Qualifiers: Diabetes mellitus type: type 2 Diabetes mellitus care home insulin use: without care home use Diabetes mellitus complication status: without complication Qualified Code(s): E11.9 - Type 2 diabetes mellitus without complications (5) Tobacco abuse Status: Chronic Assessment and plan: the patient was counseled on the importance of smoking quitting. The patient has lung nodule that might be suspicious for malignancy (6) Hyperlipidemia Status: Acute Assessment and plan: we'll continue home statin and obtain fasting lipid profile in a.m. Qualifiers: Hyperlipidemia type: unspecified Qualified Code(s): E78.5 - Hyperlipidemia, unspecified (7) DVT prophylaxis Status: Acute Assessment and plan: Will place SCDs - Time Spent With Patient Total time spent is greater than 50% in coordination of care (as documented) at patient's floor/unit and/or counseling patient:
--- NOTE | 2019-04-12 17:32 | Pulmonology Consult Note ---
Date of Encounter: 04/12/19 Time of Encounter: 15:50 Assessment and Plan (1) Pulmonary nodule Status: Acute I have reviewed CT chest result with the patient and reviewed the images with the family. Patient has risk factors for malignancies such as her significant history of smoking and also underlying emphysema and location of the lung lesion in the right upper lobe. I have explained to them that this is cancer until proven otherwise and it will need to biopsy. I have explained to them bronchoscopy versus CT-guided biopsy and due to the location as well as having emphysema, navigational bronchoscopy biopsy was recommended and explained to them all the risks, alternatives and benefits of the procedures and they agree to have it done. This one will be arranged as outpatient as soon as patient left the hospital. She will need treatment for her a acute illness and then this is going to be done as outpatient. Thank you for the consultation and will continue monitoring and arrange this for her as soon as possible as she is discharged. (2) COPD exacerbation Status: Suspected Patient is treated appropriately with systemic steroid and bronchodilators with antibiotic and she will need to be treated for this as outpatient and whens he complete her treatment, then she can have the procedure to prevent further complications and worsening of his condition. (3) Tobacco abuse Status: Chronic Patient stated she will quit smoking tobacco and offered treatment, but she declined. History of Present Illness Consult date: 04/12/19 Requesting physician: Lu Villatoro Reason for consult: lung mass Chief complaint: Shortness of Breath History of present illness: This is a pleasant 78 year old female with multiple medical problems who presented to the hospital with worsening of dyspnea and patient has significant smoking history for more than 60 years. She stated she is slowing down now, but she was much heavier smoker at one point. She has more productive cough and some wheezing. She has no hemoptysis. She was found to have spiculated pulmonary nodule when she had CT chest which is highly suspicious for lung cancer and pulmonary consulted for an evaluation. Patient denies any history of TB or sick contacts. She reports some weight loss and she has no chest pain or night sweats. Past Med Surg Social Fam HX - Past Medical History Medical history: atrial fibrillation, diabetes, hyperlipidemia, hypertension Psychiatric history: depression - Past Surgical History Additional surgical history: tubal, skin cancer on nose removed, eye surgery. - Social History Smoking Status: Current every day smoker Packs per day: 1/2 Smokeless Tobacco Status: No Alcohol use: none Drug use: none - Family History Father Hx Family Cardiac Disorders: Yes ([place]) Mother Hx Family Endocrine Disorder: Yes (diabetes) Medications and Allergies Atorvastatin [Lipitor] 40 mg PO HS 09/05/17 [History] Lisinopril [Zestril] 20 mg PO DAILY 09/05/17 [History] Metoprolol [Lopressor] 50 mg PO BID 09/05/17 [History] metFORMIN [Glucophage] 250 mg PO BID 09/05/17 [History] Aspirin 81 mg PO DAILY #30 tab.chew 09/06/17 [Rx] Budesonide/Formoterol 160/4.5 [Symbicort 160/4.5] 1 puff IH BIDR #1 inhaler 09/06/17 [Rx] Ipratropium/Albuterol Neb [Duoneb] 3 ml IH [id number] #30 inhsol 09/06/17 [Rx] amLODIPine [Norvasc] 10 mg PO DAILY #30 tablet 09/06/17 [Rx] Dipyridamole 50 mg PO TID 07/17/18 [History] Ergocalciferol (VITAMIN D2) [Vitamin D] 400 unit PO 07/17/18 [History] Albuterol Sulfate [Albuterol Inhaler] 2 puff IH Q6HR PRN #1 hfa.aer.ad 04/13/19 [Rx] Levofloxacin [Levaquin] 500 mg PO DAILY #4 tablet 04/13/19 [Rx] Nicotine Patch [Nicoderm] 14 mg TD DAILY #30 patch.td24 04/13/19 [Rx] predniSONE [PredniSONE] 40 mg PO DAILY #10 tablet 04/13/19 [Rx] Allergy/AdvReac Type Severity Reaction Status Date / Time No Known Allergies Allergy Verified 09/04/17 22:49 All Systems: The remainder of the systems were reviewed and are negative Physical Examination Vital Signs: Vital Signs, Last 4 Hours Temp Pulse Resp BP Pulse Ox 04/12/19 16:07 98.1 F 83 14 144/77 96 04/12/19 15:00 18 143/74 General appearance: no acute distress Eyes: nonicteric ENT: oropharynx moist Neck: supple, no lymphadenopathy Effort: mildly labored Inspection: hyperextended Auscultation: bilateral: diminished breath sounds Percussion: bilateral: not dull Cardiovascular: regular rate and rhythm Gastrointestinal: normoactive bowel sounds, non-distended Extremities: no cyanosis, no edema normal mental status, non-focal exam mood appropriate Results - Laboratory Findings CBC and BMP: 04/13/19 05:25 04/13/19 05:25 PT/INR, D-dimer PT 11.6 Seconds (9.4-12.1) 04/12/19 11:58 345 ng/mLFEU (0-500) 04/12/19 11:58 Abnormal lab findings: Abnormal lab results WBC 15.8 K/mcL (4.3-11.1) H 04/12/19 11:58 MPV 8.6 fL (9.4-12.4) L 04/12/19 11:58 12.5 K/mcL (1.6-8.9) H 04/12/19 11:58 APTT 37.4 Seconds (26.0-36.0) H 04/12/19 11:58 Sodium 135 mEq/L (136-145) L 04/12/19 11:58 Chloride 95 mEq/L (98-107) L 04/12/19 11:58 Carbon Dioxide 32 mEq/L (23-29) H 04/12/19 11:58 Glucose 161 mg/dL (70-105) H 04/12/19 11:58 - Diagnostic Findings CT scan - chest: report reviewed, image reviewed - Clinical Findings Intake & Output: Intake & Output 04/12/19 04/12/19 04/12/19 07:59 15:59 23:59 Weight 63.458 kg Consult Discharge Plan - Plan Instructions: Albuterol (By breathing), Prednisone (By mouth), Nicotine (Absorbed through the skin), Levofloxacin (By mouth), Using Oxygen at Home (DC), Chronic Obstructive Pulmonary Disease (DC) Referrals: Sadi Emerson MD [Partnered Physician] - (Appointment has been requested. Our office will call with an appointment time and date.) Renato No DO [Primary Care Provider] - 04/18/19 11:00 am Prescriptions: Albuterol Sulfate [Albuterol Inhaler] 2 puff IH Q6HR PRN #1 hfa.aer.ad PRN Reason: Shortness Of Breath Levofloxacin [Levaquin] 500 mg PO DAILY #4 tablet Nicotine Patch [Nicoderm] 14 mg TD DAILY #30 patch.td24 predniSONE [PredniSONE] 40 mg PO DAILY #10 tablet
[2019-04-12] MEDS ORDERED: *HR* HYDROcodone/Acet 5/325 mg TABLET PO PRN (18:50)
[2019-04-12] MEDS ORDERED: Naloxone 0.4 MG/ML INJ IVP PRN (18:50)
[2019-04-12] MEDS ORDERED: Ondansetron 4 MG/2 ML VIAL IVP PRN (18:50)
[2019-04-12] MEDS ORDERED: Acetaminophen 325 MG TABLET PO PRN (18:50)
[2019-04-12] MEDS: Ipratropium/Albuterol Neb 3 ML IH SCH ×2 (19:51→22:13)
[2019-04-12] MEDS: MethylPREDNISolone 40 MG/ML VIAL IVP SCH (23:29)
[2019-04-13] MEDS: Ipratropium/Albuterol Neb 3 ML IH SCH ×2 (04:12→10:33)
[2019-04-13] MEDS ORDERED: *HR* Dextrose 50 % in Water (Syg) 50 ML SYRINGE IVP PRN (05:45)
[2019-04-13] MEDS ORDERED: Dextrose Gel 15 GM/37.5 ML TUBE PO PRN ×2 (05:45)
[2019-04-13] MEDS ORDERED: D5% in Water 1,000 ML IVC PRN (05:45)
[2019-04-13] MEDS: MethylPREDNISolone 40 MG/ML VIAL IVP SCH (05:46)
--- NOTE | 2019-04-13 06:20 | Electrocardiograph Report ---
[facility] Test Date: 2019-04-12 Pat Name: Camelia Martínez Department: [id number] Room: 3B12 Gender: F Caterer Helper: : 1940 Requested By: Emiliano Barton Order Number: [id number] Reading MD: Jean Sam Measurements Intervals [place] Rate: 78 P: 70 VT: 181 QRS: -79 QRSD: 111 T: 62 QT: 423 QTc: 457 Interpretive Statements Sinus rhythm Atrial premature complexes in couplets Incomplete RBBB and LAFB RSR' in V1 or V2, right VCD or RVH Electronically Signed On 04-13-2019 6:18:41 EDT by Jean Sam
[2019-04-13 06:47] VITALS: BP 134/82
[2019-04-13 06:51] LABS: Basophils % 0.2 %; Hematocrit 40.1 % (35.3-44.9); Hemoglobin 13.1 g/dL (11.5-15.4); Immature Granulocytes % 0.4 % (0-4); Lymphocytes # 1.4 K/mcL (0.6-4.6); Lymphocytes % 10.6 %; Mean Corpuscular HGB Conc 32.7 g/dL (31.6-35.5); Mean Corpuscular Hemoglobin 30.8 pg (28.0-33.3); Mean Corpuscular Volume 94.4 fL (83.0-100.0); Mean Platelet Volume 8.9 fL (9.4-12.4); Monocytes # 0.5 K/mcL (0.0-1.3); Monocytes % 3.5 %; Neutrophils # 11.5 K/mcL (1.6-8.9); Platelet Count 241 K/mcL (140-400); Red Blood Count 4.25 M/mcL (3.82-4.97); Red Cell Distribution Width 12.6 % (11.5-14.5); Segmented Neutrophils % 85.3 %
[2019-04-13 06:58] LABS: INR 1.1; Prothrombin Time 12.2 Seconds (9.4-12.1)
[2019-04-13 07:01] LABS: Activated Partial Thrombo Time 34.1 Seconds (26.0-36.0)
[2019-04-13 07:13] LABS: Alanine Aminotransferase 8 Units/L (7-52); Albumin/Globulin Ratio 1.3 (1.1-2.2); Alkaline Phosphatase 71 Units/L (34-104); Aspartate Amino Transferase 16 Units/L (13-39); BUN/Creatinine Ratio 19 (6-26); Bilirubin,Total 0.3 mg/dL (0.3-1.0); Blood Urea Nitrogen 10 mg/dL (8-23); Calcium 9.5 mg/dL (8.6-10.3); Carbon Dioxide 29 mEq/L (23-29); Chloride 97 mEq/L (98-107); Chol/HDL Ratio 2.3 (0-4.9); Cholesterol 160 mg/dL (< 200); Glucose 152 mg/dL (70-105); HDL Cholesterol 70 mg/dL (40-59); LDL Cholesterol,Calculated 80 mg/dL (0-99); Osmolality,Calculated 282 (280-300); Phosphorous 3.1 mg/dL (2.7-4.5); Potassium 3.8 mEq/L (3.5-5.1); Sodium 135 mEq/L (136-145); Triglycerides 49 mg/dL (< 150); eGFR For Non-African Americans > 60 (> 60)
[2019-04-13] MEDS ORDERED: Insulin LISPRO 300 UNITS/3 ML VIAL SQ SCH ×2 (07:30→21:00)
[2019-04-13 08:20] LABS: Estimated Average Glucose 137 mg/dl; Hemoglobin A1C 6.4 %
[2019-04-13] MEDS ORDERED: Azithromycin 500 MG in D5% in Water 250 ML IVPB SCH (09:00)
--- NOTE | 2019-04-13 10:07 | Discharge Summary ---
- NOTES TO OUTPATIENT PROVIDER Notes to Outpatient Provider: f/u with PCP in one week. f/u with Pulmonary Dr. Emerson in 1-2 weeks, for possible out pt bronchosope regarding your Rt side lung mass. Please continue with smoking cessation Date of Encounter: 04/13/19 Time of Encounter: 10:05 - Discharge Diagnosis (1) Acute respiratory failure with hypoxia Priority: Primary Status: Acute (2) COPD exacerbation Priority: Primary Status: Acute (3) Pulmonary nodule Priority: Primary Status: Acute (4) Diabetes Priority: Secondary Status: Chronic Qualifiers: Diabetes mellitus type: type 2 Diabetes mellitus usp insulin use: without usp use Diabetes mellitus complication status: without complication Qualified Code(s): E11.9 - Type 2 diabetes mellitus without complications (5) TIA (transient ischemic attack) Priority: Secondary Status: Chronic Qualifiers: Transient cerebral ischemia type: unspecified Qualified Code(s): G45.9 - Transient cerebral ischemic attack, unspecified (6) Tobacco abuse Priority: Secondary Status: Chronic (7) DVT prophylaxis Priority: Secondary Status: Acute (8) Hyperlipidemia Priority: Secondary Status: Acute Qualifiers: Hyperlipidemia type: unspecified Qualified Code(s): E78.5 - Hyperlipidemia, unspecified Hospital course: Ms. Martínez is a 78 year old female with past medical history including hypertension, coronary artery disease, diabetes mellitus type 2, COPD, HLD, TIA and chronic tobacco dependence patient presented to ER with progressively worsening shortness of breath since yesterday morning. She did have cough with expectoration. She denied any chest pain. Her chest x-ray showed New 2.6 cm right upper lobe nodule. Her CT of chest showed spiculated pulmonary nodule in the right upper lobe measuring 2.5 x 2.3cm. Finding is highly suspicious for primary lung malignancy. She was admitted in the hospital and started her on empirical antibiotic and systemic steroids. Patient was hypoxic initially required 2 lit oxygen at resting. Now she is breathing comfortably on room air. Patient was evaluated by profiling machine setup operator regarding her right upper lobe lung nodule. Ticket Taker recommended to follow up with them as an out pt for bronchoscope. Mean while recommend to treat her current flare up COPD exacerbation with systemic steroids and prophylactic abx. Pt states she quit smoking 7 days. Will d/c her home in stable condition today with PO steroids and prophylactic abx Levaquin. Will do ambulating pulse oxy study before she goes home. - Time Spent with Patient Total time spent providing and/or coordinating discharge services: - Discharge Medications Prescriptions: New Albuterol Sulfate [Albuterol Inhaler] 2 puff IH Q6HR PRN #1 hfa.aer.ad PRN Reason: Shortness Of Breath Levofloxacin [Levaquin] 500 mg PO DAILY #4 tablet Nicotine Patch [Nicoderm] 14 mg TD DAILY #30 patch.td24 predniSONE [PredniSONE] 40 mg PO DAILY #10 tablet Continued Atorvastatin [Lipitor] 40 mg PO HS Metoprolol [Lopressor] 50 mg PO BID metFORMIN [Glucophage] 250 mg PO BID Lisinopril [Zestril] 20 mg PO DAILY amLODIPine [Norvasc] 10 mg PO DAILY #30 tablet Aspirin 81 mg PO DAILY #30 tab.chew Budesonide/Formoterol 160/4.5 [Symbicort 160/4.5] 1 puff IH BIDR #1 inhaler Ipratropium/Albuterol Neb [Duoneb] 3 ml IH [id number] #30 inhsol Ergocalciferol (VITAMIN D2) [Vitamin D] 400 unit PO Dipyridamole 50 mg PO TID Home Medications: Atorvastatin [Lipitor] 40 mg PO HS 09/05/17 [History] Lisinopril [Zestril] 20 mg PO DAILY 09/05/17 [History] Metoprolol [Lopressor] 50 mg PO BID 09/05/17 [History] metFORMIN [Glucophage] 250 mg PO BID 09/05/17 [History] Aspirin 81 mg PO DAILY #30 tab.chew 09/06/17 [Rx] Budesonide/Formoterol 160/4.5 [Symbicort 160/4.5] 1 puff IH BIDR #1 inhaler 09/06/17 [Rx] Ipratropium/Albuterol Neb [Duoneb] 3 ml IH [id number] #30 inhsol 09/06/17 [Rx] amLODIPine [Norvasc] 10 mg PO DAILY #30 tablet 09/06/17 [Rx] Dipyridamole 50 mg PO TID 07/17/18 [History] Ergocalciferol (VITAMIN D2) [Vitamin D] 400 unit PO 07/17/18 [History] Albuterol Sulfate [Albuterol Inhaler] 2 puff IH Q6HR PRN #1 hfa.aer.ad 04/13/19 [Rx] Levofloxacin [Levaquin] 500 mg PO DAILY #4 tablet 04/13/19 [Rx] Nicotine Patch [Nicoderm] 14 mg TD DAILY #30 patch.td24 04/13/19 [Rx] predniSONE [PredniSONE] 40 mg PO DAILY #10 tablet 04/13/19 [Rx] Allergies/Adverse Reactions: Allergy/AdvReac Type Severity Reaction Status Date / Time No Known Allergies Allergy Verified 09/04/17 22:49 Date of admission: 04/12/19 14:07 Primary care physician: Renato No Consults: 04/12/19 14:49 Consult to Pulmonology [CONS] Routine Consulting Provider: [facility] [place] Reason for Consult: LUNG nodule Call Completed: Yes 04/12/19 18:55 Consult to Nurse Navigator [CONS] Routine Comment: - Constitutional Vitals: Temp Pulse Resp BP Pulse Ox 98.3 F 73 16 134/82 94 04/13/19 06:45 04/13/19 06:45 04/13/19 06:45 04/13/19 06:45 04/13/19 06:45 General appearance: Present: A&O X 3, no acute distress, answers questions appropriately Exam: Gen: Alert, awake, Oriented to time,place and person Chest: Diminished breath sounds B/L, Mild to moderate wheezing, No crackles, No rales Heart: S1S2+ RRR No murmurs Abd: Soft, NT, BS +, No organomegaly Ext: No edema, pulses are palpable, No calf tenderness Neuro : No acute focal neuro deficits noticed Skin: No rash. - Patient Status Disposition: Home, Self-Care Condition: Good Overall status at discharge: patient is back to baseline - Discharge Instructions Follow Up With: Renato No DO [Primary Care Provider] - Sadi Emerson MD [Partnered Physician] - Forms: ED Satisfaction Letter - Diet and Activity Activity: increase activity as tolerated Diet: low salt diet
--- NOTE | 2019-04-13 16:31 | Pulmonology Progress Note ---
Date of Encounter: 04/13/19 Time of Encounter: 10:00 Assessment and Plan (1) Pulmonary nodule Status: Acute Patient is being discharged home and discussed with primary team as well as patient and her son at the bedside about outpatient plan for lung biopsy. (2) COPD exacerbation Status: Suspected Patient will be discharged home on an empiric course of steroid and antibiotics with steroid. (3) Tobacco abuse Status: Chronic Patient advised to quit smoking and she said she will do that. Subjective Principal diagnosis: Dyspnea Interval history: Patient is feeling much better on current treatment and she is going to be disch arge home. She denies any carving for smoking. Objective PUL Vital signs: Last Vital Signs Temp 98.3 F 04/13/19 06:45 Pulse 73 04/13/19 06:45 Resp 18 04/13/19 10:33 BP 134/82 04/13/19 06:45 Pulse Ox 94 04/13/19 10:34 General appearance: no acute distress Eyes: nonicteric ENT: oropharynx moist Neck: supple, no lymphadenopathy Effort: normal Auscultation: bilateral: diminished breath sounds Percussion: bilateral: not dull Cardiovascular: regular rate and rhythm Gastrointestinal: normoactive bowel sounds, non-distended Extremities: no cyanosis, no edema normal mental status, non-focal exam mood appropriate Results - Laboratory Findings CBC and BMP: 04/13/19 05:25 04/13/19 05:25 PT/INR, D-dimer PT 12.2 Seconds (9.4-12.1) H 04/13/19 05:25 345 ng/mLFEU (0-500) 04/12/19 11:58 Abnormal lab findings: Abnormal lab results WBC 13.5 K/mcL (4.3-11.1) H 04/13/19 05:25 MPV 8.9 fL (9.4-12.4) L 04/13/19 05:25 11.5 K/mcL (1.6-8.9) H 04/13/19 05:25 PT 12.2 Seconds (9.4-12.1) H 04/13/19 05:25 APTT 37.4 Seconds (26.0-36.0) H 04/12/19 11:58 Sodium 135 mEq/L (136-145) L 04/13/19 05:25 Chloride 97 mEq/L (98-107) L 04/13/19 05:25 Carbon Dioxide 32 mEq/L (23-29) H 04/12/19 11:58 0.53 mg/dL (0.60-1.20) L 04/13/19 05:25 Glucose 152 mg/dL (70-105) H 04/13/19 05:25 POC Glucose 154 mg/dL (70-99) H 04/13/19 05:44 6.4 % (-5.6) H 04/13/19 06:37 70 mg/dL (40-59) H 04/13/19 05:25 - Clinical Findings Intake & Output: Intake & Output 04/13/19 04/13/19 04/13/19 07:59 15:59 23:59 Intake Total 250 / 250 Balance 250 / 250 Weight 64.5 kg Consult Discharge Plan - Plan Instructions: Albuterol (By breathing), Prednisone (By mouth), Nicotine (Absorbed through the skin), Levofloxacin (By mouth), Using Oxygen at Home (DC), Chronic Obstructive Pulmonary Disease (DC) Referrals: Sadi Emerson MD [Partnered Physician] - (Appointment has been requested. Our office will call with an appointment time and date.) Renato No DO [Primary Care Provider] - 04/18/19 11:00 am Prescriptions: Albuterol Sulfate [Albuterol Inhaler] 2 puff IH Q6HR PRN #1 hfa.aer.ad PRN Reason: Shortness Of Breath Levofloxacin [Levaquin] 500 mg PO DAILY #4 tablet Nicotine Patch [Nicoderm] 14 mg TD DAILY #30 patch.td24 predniSONE [PredniSONE] 40 mg PO DAILY #10 tablet
== END 2019-04-13 15:07 | disposition home or self-care (01) ==
LOC: 3BNU 11:24 → EMEROOARM 11:24 → SUATTDRO 14:07 → 3BNU 15:10
PROVIDERS: ADMIT Internal Medicine Nephrology; ATTEND Family Medicine